=== PATIENT | male | born 1980 | race Hispanic/Latino ===

== ENCOUNTER 2025-02-19 17:28 | Day surgery (SDC) | payer SELFPAY ==
[2025-02-19] VITALS (13 sets, daily range): BP systolic 109–132; BP diastolic 70–86
--- NOTE | 2025-02-19 11:38 | ED.GENMED ---
History of Present Illness
General
Chief Complaint: Abdominal Pain
Source: patient and family
Time Seen by Provider: 02/19/25 10:59
History of Present Illness
History of Present Illness:
Translation via family, patient refused reception
44-year-old male with no significant past medical history presents to the emergency department for 5 days of periumbilical abdominal pain described to be relatively constant although waxes and wanes, made worse with eating or drinking noting that
pain will often get worse about an hour or 2 after eating and then start to subside after another few hours accompanied with some mild nausea but no vomiting, sensation of pyrexia and mild headache. Patient states he has never had similar symptoms.
He attempted natural remedies with lemon and [place] but states this did not do anything for him. No previous history of similar, no surgical history on the abdomen, no other significant past medical history. Social history noncontributory. At
present time patient states pain is about a 3 out of 10, mild, nonradiating.
Past History
Past History
ED Past Medical History: None
ED Past Surgical History: None
Social History
Tobacco: Non-smoker
Alcohol: None
Drug: None
Living: with family
Employment: Employed
Review of Systems
Review of Systems
All Other Systems: ROS reviewed and negative except as documented in HPI and ROS
Phy Exam
Physical Exam
Physical Exam:
GENERAL: Alert , in no apparent distress but does appear somewhat uncomfortable
EYE: clear conjunctiva b/l
HEAD: NCAT
ENT: o/p clr, mmm.
CARDIAC: Regular rate and rhythm .
LUNGS: Clear breath sounds bilaterally, no acute respiratory distress, no wheezes/rales/rhonchi
ABDOMEN: Soft, mostly tender within the periumbilical region, epigastrium and right upper quadrant, no r/g, no cvat, negative Cristina sign, no tenderness at McBurney's point
NEUROLOGICAL: Alert and oriented
SKIN: Warm and dry, skin intact.
MUSCULOSKELETAL: No edema, well perfused.
PSYCH: Normal and appropriate interaction.
Scores
Heart Failure Risk
Heart Failure Risk Score: Not Applicable
Heart Score for Chest Pain Patients
STEMI patient?: Not applicable
Withdrawal Assessment of Alcohol
Withdrawal Assessment Completed?: Not applicable
Course
Orders/Labs/Results
Orders:
Orders
02/19/25 11:28
Ketorolac [Toradol] 30 mg IV NOW STA
Mag Hydrox/Al Hydrox/Simeth [Maalox] 30 ml Phenobarb/Hyoscy/Atropine/Scop [] 10 ml Viscous Lidocaine 2% [Xylocaine Viscous Cup] 10 ml PO NOW
02/19/25 11:29
Electrocardiogram (*1) Urgent
Reason for Study: Abdominal Pain
EKG- Treatment ONCE
Urinalysis Reflex To Culture Urgent
Date Specimen was Collected: 02/19/25
Time Specimen was Collected: 11:58
02/19/25 11:59
Complete Blood Count/With Diff Urgent
Comprehensive Metabolic Panel Urgent
Lipase Urgent
Troponin I Urgent
02/19/25 12:01
Mag Hydrox/Al Hydrox/Simeth [Maalox] 30 ml .ROUTE .STK-MED ONE
Phenobarb/Hyoscy/Atropine/Scop [] 10 ml .ROUTE .STK-MED ONE
Viscous Lidocaine 2% [Xylocaine Viscous Cup] 15 ml .ROUTE .STK-MED ONE
02/19/25 12:38
CT Abd/pelvis W Iv Cont Urgent
Comment:
Reason For Exam: generalized abd pain
02/19/25 14:47
Bupivacaine 0.25%Pf/Epinephrin [Sensorcaine-Epi 0.25%-0.0005] 30 ml .ROUTE .STK-MED ONE
02/19/25 15:00
Troponin I Urgent
02/19/25 16:00
Piperacillin/Tazo 3.375 Gram [Zosyn] 3.375 gram in 50 ml IV Q6H
Abnormal Lab Results
02/19/25
11:59
Chloride 109 H mmol/L
(98-107)
02/19/25 11:59
02/19/25 11:59
Vital Signs
Initial and Last Documented VS:
Initial Vital Signs
Temp Pulse Resp BP Pulse Ox
97.6 F 60 16 132/75 97
02/19/25 10:07 02/19/25 10:07 02/19/25 10:07 02/19/25 10:07 02/19/25 10:07
Last Documented Vital Signs
Temp Pulse Resp BP Pulse Ox
97.6 F 62 18 132/74 98
02/19/25 10:07 02/19/25 13:17 02/19/25 13:17 02/19/25 13:17 02/19/25 13:17
MDM/Problems Addressed
Differential Diagnosis Includes:
GERD, gastritis, duodenitis, biliary colic, pancreatitis, appendicitis, atypical ACS presentation, colitis
MDM/Problems Addressed:
44-year-old male presenting to the ER for evaluation of periumbilical abdominal pain for the last 5 days, symptoms made worse with eating or drinking. No history of similar. No medical history. Will check labs. Deciding between either ultrasound
or CT scan, if LFTs elevated will proceed with ultrasound but if these are within normal limits will obtain CT scan. I suspect GERD/gastritis/duodenitis/possible peptic ulcer disease is most likely diagnosis, will treat with green grabber and
toradol for now.
*Radiology
Radiology exam reviewed: radiology read reviewed
*Pulse Oximetry
Patient hypoxic: no
*Critical Care Note
Total Time (30-74mins, 75-104mins- exclusive of procedures): Not Applicable
Patient Management
Discussion with other providers: Apartment Locator and Radiologist
Escalation/DeEscalation of care consider admission/obs:
Language Line [id number] used for interpretation
Notified by radiology that patient has acute uncomplicated appendicitis on CT scan. I am notified general surgery who will come to the ER to evaluate the patient. Patient does note improved pain following medications. Advised patient to remain
n.p.o. Will admit to general surgery service
ED Attending Note
-
Portions of this chart may have been created with voice recognition software.� Occasional wrong word or��sound alike� substitutions may have occurred due to the inherent limitations of voice recognition software.
Discharge Plan
Departure
Patient Disposition: Admit
Date of Disposition: 02/19/25
Time of Disposition: 14:00
Presentation/result/management discussed w/ accepting MD/DO: Vicki
Discharge Problem:
Acute appendicitis
Referrals:
NONE,* [Family Provider] -
Interventions
Interventions:
*Risk Screen - Suicide Last Done: 02/19/25 10:07
*General Assessment Last Done: 02/19/25 10:07
*Neglect/Abuse Screening Last Done: 02/19/25 10:07
*ED- Fall Risk Assessment Last Done: 02/19/25 10:59
FD-Tqjrdk-Pgqxsqdfvd Assessment Last Done: 02/19/25 10:59
Discharge Date and Time
Print Language: GREENLAND[place]
[2025-02-19] MEDS: TORADOL 30 MG IV (12:01)
[2025-02-19] MEDS: MAALOX 50 PO (12:02)
[2025-02-19 12:15] LABS: % Basophils 0.2 % (0-2); % Eosinophils 1.9 % (0-6); % Immature Granulocytes 0.3 % (0-0.5); % Lymphocytes 28.9 % (20.5-51.1); % Monocytes 7.7 % (1.7-9.3); Absolute Eosinophils 0.1 10^3/uL (0-0.7); Absolute Lymphocytes 1.9 10^3/uL (1.2-3.4); Absolute Monocytes 0.5 10^3/uL (0.1-0.6); Absolute Neutrophils 3.9 10^3/uL (1.4-6.5); Hematocrit 41.1 % (39.0-52.0); Hemoglobin 14.2 g/dL (13.0-18.0); Mean Corp Hgb Conc. 34.5 g/dL (33.0-37.0); Mean Corpuscular Hgb 30.1 pg (27.0-31.0); Mean Corpuscular Volume 87.1 fL (80.0-94.0); Mean Platelet Volume 9.1 fL (7.4-10.4); Nucleated Red Blood Cells % 0 % (-); Platelet Count 257 10^3/uL (130-400); Red Blood Cell Count 4.72 10^6/uL (4.70-6.10); Red Cell Dist. Width 12.3 % (11.5-14.5); White Blood Cell Count 6.5 10^3/uL (4.8-10.8)
[2025-02-19 12:28] LABS: ALT (SGPT) 46 U/L (0-50); AST (SGOT) 26 U/L (17-59); Albumin 4.3 g/dl (3.5-5.0); Alkaline Phosphatase 55 U/L (38-126); Blood Urea Nitrogen 13 mg/dl (9-20); Carbon Dioxide 28 mmol/L (22-30); Chloride 109 mmol/L (98-107); Glucose 92 mg/dl (70-99); Lipase 98 U/L (23-300); Potassium 4.3 mmol/L (3.5-5.1); Sodium 142 mmol/L (135-145); Total Bilirubin 0.9 mg/dl (0.2-1.3); Total Protein 7.1 g/dl (6.3-8.2); eGFR > 60.00
[2025-02-19 12:39] LABS: Troponin I 0.026 ng/ml
--- NOTE | 2025-02-19 14:33 | HPS.HSE ---
Family Physician
-
Family Physician: * NONE
Chief Complaint
-
Abdominal pain
History of Present Illness
Patient is a 44 yo M with no pertinent PMH who presents with 5 days of persistent and worsening abdominal pain. Patient is Slovenian-speaking only, spanish medical interpreter (ID [id number]) was used for this encounter. Mr. Mata states that his pain is in
the periumbilical and RLQ region. Symptoms began approximately 5 days ago and have progressed since that time. Associated fevers managed with Tylenol. No nausea or vomiting. No fluctuations in GI function. He denies any chronic GI issues. No
prior colonoscopy. He does not see a physician regularly.
Medical History
Past Medical History
Past Medical History: Reports None
Past Surgical History: Reports None
Social History
Tobacco: Non-smoker
Alcohol: None
Drug: None
Family History
Family History: Not pertinent
Allergies / Home Medications
Allergies reflects when Allergies were last updated in [facility].
Home Medications with original date entered in [facility]
Allergy/Medication List:
NKDA
Review of Systems
-
A 12 point ROS was completed and negative except as noted: Yes
Physical Exam
Vital Signs
Vital Signs
Temp Pulse Resp BP Pulse Ox
97.6 F 62 18 132/74 98
02/19/25 10:07 02/19/25 13:17 02/19/25 13:17 02/19/25 13:17 02/19/25 13:17
Physical Exam
General: Well Developed, Well Nourished and No Apparent Distress
HEENT: NormoCephalic and Anicteric
Respiratory: Non Labored Respirations
Cardiac: Regular Rhythm
GI: Soft, Non Distended, Tender (RLQ) and Other (No diffuse peritonitis)
Musculoskeletal: No Edema
Skin: Warm and Dry
Neuro: Nonfocal/grossly intact
Laboratory Results
-
02/19/25 11:59
02/19/25 11:59
Laboratory Results
Total Bilirubin 0.9 mg/dl (0.2-1.3) 02/19/25 11:59
AST 26 U/L (17-59) 02/19/25 11:59
ALT 46 U/L (0-50) 02/19/25 11:59
Alkaline Phosphatase 55 U/L (38-126) 02/19/25 11:59
Troponin I Cancelled 02/19/25 15:42
Lipase 98 U/L (23-300) 02/19/25 11:59
Data Reviewed
-
CT Scan: Image Personally Visualized and interpreted and Report Reviewed by me
Lab Data: Labs Reviewed by me
Impression/Plan
-
IMPRESSION:
Patient is a 44 yo M p/w acute appendicitis
The natural history and pathophysiology of appendicitis was discussed. CT scan imaging was reviewed. Options for management including medical management with antibiotics versus surgical management with appendectomy were considered and discussed.
Pros and cons of both approaches was discussed. Specifically, we discussed failure of medical management and future episodes of appendicitis versus surgical risks.
Plan for a laparoscopic appendectomy. The procedure itself, as well as the risks, benefits, and alternatives was discussed. Specifically, we discussed the risk of bleeding, infection, injury to surrounding structures (bowel, bladder), staple line
leak, need for open procedure. Typical postprocedure recovery including potential need for operative drain and activity restrictions were discussed. All questions answered. Consent signed.
PLAN:
-- Laparoscopic appendectomy
-- NPO, IVF
-- Abx: Zosyn
-- Admit post-op
--- NOTE | 2025-02-19 14:37 | W.SUR.PREOP ---
Pre-Operative Surgical Note
-
I have examined this patient prior to the performance of the scheduled procedure.
The patient's condition is unchanged from the time of the current History and
Physical and the patient is able to undergo the scheduled procedure.
[2025-02-19 15:39] LABS: Troponin I < 0.012 ng/ml
[2025-02-19] MEDS: ZOSYN 50 IV ×2 (16:50→22:32)
[2025-02-19 17:04] LABS: Urine Albumin 1+ (Neg - Trace); Urine Bilirubin Negative (Negative); Urine Character Clear (Clear); Urine Color Yellow; Urine Glucose Negative (Negative); Urine Ketone Negative (Negative); Urine Leukocyte Negative (Negative); Urine Nitrite Negative (Negative); Urine Occult Blood 1+ (Negative); Urine Specific Gravity 1.005 (<1.030); Urine Urobilinogen Negative (Neg - 1+)
[2025-02-19 17:37] LABS: Urine Red Blood Cell 0-2 /HPF (0-2); Urine Squamous Cell 0-2 /LPF (Few); Urine White Cell 0-2 /HPF (0-5)
--- NOTE | 2025-02-19 19:00 | W.IMMPOSTOP ---
Surgical Immed Post Op Note
-
Primary Surgeon: Vicki
Assisting Surgeon: None
Pre-op Diagnosis: Acute appendicitis
Post-op Diagnosis: Acute appendicitis
Procedure Performed: Laparoscopic appendectomy
Anesthesia Type: General
Specimen / Cultures:
1. Appendix
Estimated Blood Loss: 3 cc
Complications: None
Operative Findings:
1. Severe indurated appendicitis, no perforation or spillage, serous reactive fluid within pelvis
2. Sharp mobilization of TI to visualize appendix
3. Mesentery taken with [employer], base with purple load stapler flush with cecum
[2025-02-19] MEDS: ZOFRAN 4 MG IV (19:24)
[2025-02-19] MEDS: MORPHINE SULFATE 2 MG IV (20:13)
[2025-02-19] MEDS: NORMOSOL-R/PLASMALYTE-A 1000 IV (20:40)
--- NOTE | 2025-02-19 20:40 | PTCARENOTE ---
Patient admitted to [address] [place] [address] around 2039. Patient coming from PACU s/p laparoscopic appendectomy. Admission questions done with clinical business manager, ID [id number]. Confirmed patient has no emergency contact. See flow sheets for vitals and assessment.
Call singleton within reach, safety maintained. Will continue to monitor.
[2025-02-19] MEDS: DILAUDID 0.5 MG IV (20:50)
[2025-02-19] MEDS: TYLENOL PO (21:27)
[2025-02-19] MEDS: DILAUDID IV (23:01)
[2025-02-19] MEDS: TYLENOL 650 MG PO (23:01)
[2025-02-20] VITALS: BP 134/62
[2025-02-20] MEDS: TYLENOL 650 MG PO ×2 (03:54→07:26)
[2025-02-20] MEDS: ZOSYN 50 IV ×2 (03:54→09:18)
[2025-02-20 06:00] VITALS: BMI 26.8
[2025-02-20] MEDS: NORMOSOL-R/PLASMALYTE-A 1000 IV (07:27)
[2025-02-20 07:45] VITALS: BP 109/65
--- NOTE | 2025-02-20 08:00 | PTCARENOTE ---
Addendum entered by Reymundo Bird RN 02/20/25 09:18:
drilling rig operator ID # [id number]
Original Note:
drilling rig operator [id number] used for assessment and plan of care communication this AM with pt.
--- NOTE | 2025-02-20 09:40 | W.PN.GS2 ---
Today's Communication / Plan
-
-- DC today
Assessment / Plan
-
Patient is a 44 yo M POD#1 s/p laparoscopic appendectomy
AVSS
Recovering well. No postoperative concerns.
-- Regular diet
-- HLIV
-- Pain control: Tylenol, Toradol, Oxycodone
-- Abx: Zosyn, none further needed on DC
-- DVT: Lovenox
-- DC today
Subjective Data
-
Date of Service: February 20, 2025
No complaints. Feels improved. Ports a mild discomfort in the RLQ. No nausea or vomiting. Passing flatus. No fevers. Ambulating. Voiding.
Objective Data
-
Intake and Output
02/19/25 02/20/25 02/21/25
06:59 06:59 06:59
Intake Total 1860 / 1860 50 / 50
Balance 1860 / 1860 50 / 50
Intake:
Oral fluids 960 / 960
IV fluids (Total) 900 / 900
IV piggybacks 50 / 50
Other:
Number of approximated LARGE 1
amounts of urine
Vital Signs
Temp Pulse Resp BP Pulse Ox
98.5 F 80 16 109/65 96
02/20/25 07:45 02/20/25 07:45 02/20/25 07:45 02/20/25 07:45 02/20/25 07:45
Lab Results
02/19/25 11:59
02/19/25 11:59
Calcium 9.0 mg/dl (8.4-10.2) 02/19/25 11:59
Total Bilirubin 0.9 mg/dl (0.2-1.3) 02/19/25 11:59
AST 26 U/L (17-59) 02/19/25 11:59
ALT 46 U/L (0-50) 02/19/25 11:59
Alkaline Phosphatase 55 U/L (38-126) 02/19/25 11:59
Total Protein 7.1 g/dl (6.3-8.2) 02/19/25 11:59
Albumin 4.3 g/dl (3.5-5.0) 02/19/25 11:59
Physical Exam
-
Gen: NAD
Abd: soft, minimal RLQ tenderness, ND, non-peritoneal, incisions c/d/i - no erythema, ecchymosis or drainage
Patient has a gonzalez catheter: No
Patient has a central line: No
--- NOTE | 2025-02-20 11:01 | CM ---
Initial assessment completed with patient via recruiting and selection consultant. Patient lives alone in a 2nd floor apartment with 2 steps to enter the building. LIGHT OUT EXAMINER he was independent, did not drive, worked in a restaurant, no in-home services or DME.
Discharge POC: No Needs.
--- NOTE | 2025-02-20 11:04 | CM ---
Patient has been medically cleared for discharge to home with no additional skilled services. Patient will take an Uber home.
--- NOTE | 2025-02-20 11:32 | PTCARENOTE ---
Discharge instructions provided to pt in [place]. quality rn Zahraa ID # [id number] used to go over dc instructions. all questions answered. pt is eating lunch first then getting an uber for transport home.
[2025-02-20 12:35] VITALS: BP 112/71
== END 2025-02-20 12:55 | disposition home or self-care (01) ==
LOC: SDS 17:28
PROVIDERS: Physician Assistant Medical; ATTENDING PHYSICIAN Surgery; EMERGENCY PHYSICIAN Emergency Medicine
DX: K35.80 Unspecified acute appendicitis (principal); K66.0 Peritoneal adhesions (postprocedural) (postinfection)
CPT/HCPCS: 44970; 88304; 74177; 80053; 81003; 81015; 83690; 84484; 85025; 93005; 96365; 96375; 99285; C1776; Q9967